=== PATIENT | male | born 1940 | race Caucasian/White ===

== ENCOUNTER → 2021-02-15 | Outpatient (CLI) | payer OTHER ==
[~2021-02-15] MED LIST: B-122500 MCG SL; CIPRSO BOTHEYES; Cardura Xl8 MG PO; Flonase 0.05% N16 GM; RXOXYACE PO; SOMA350 MG PO
[2021-02-16 09:30] LABS: Stool Occult Bld Immuno 1 Negative (NEGATIVE)
== END | disposition home or self-care (01) ==
LOC: LAB SHORT 16:09
PROVIDERS: Family Medicine
DX: Z12.11 Encounter for screening for malignant neoplasm of colon (principal)
CPT/HCPCS: G0328

== ENCOUNTER 2021-09-13 11:59 | Emergency (ER) | payer OTHER ==
[~2021-09-13] VITALS: Ht 175.3 cm; Wt 109.8 kg
[2021-09-13 13:13] LABS: BASOPHILS ABSOLUTE AUTO 0.02 K/mm3 (0.00-0.23); BASOPHILS PERCENT AUTO 1 % (0-2); EOSINOPHILS ABSOLUTE AUTO 0.04 K/mm3 (0.00-0.68); EOSINOPHILS PERCENT AUTO 1 % (0-6); Hematocrit 42.4 % (37.0-53.0); Hemoglobin 14.6 g/dL (13.5-17.5); IMMATURE GRAN ABSOLUTE AUTO 0.02 K/mm3 (0.00-0.10); IMMATURE GRAN PERCENT AUTO 1 % (0-1); LYMPHOCYTES ABSOLUTE AUTO 0.46 K/mm3 (0.84-5.20); LYMPHOCYTES PERCENT AUTO 17 % (21-46); MONOCYTES ABSOLUTE AUTO 0.49 K/mm3 (0.16-1.47); MONOCYTES PERCENT AUTO 18 % (4-13); Mean Corpuscular HGB 34.4 pg (26.0-34.0); Mean Corpuscular HGB Conc 34.4 g/dL (31.5-36.5); Mean Corpuscular Volume 100 fL (80-100); Mean Platelet Volume 10.4 fL (9.1-12.4); NEUTROPHILS ABSOLUTE AUTO 1.74 K/mm3 (1.96-9.15); NEUTROPHILS PERCENT AUTO 63 % (41-73); Platelet Count 62 K/mm3 (150-400); RDW Coefficient Variation 12.2 % (11.7-14.2); RDW Standard Deviation 45.4 fL (35.1-46.3); Red Blood Cell Count 4.25 M/mm3 (4.30-5.90); White Blood Cell Count 2.77 K/mm3 (4.00-11.30)
[2021-09-13 13:31] LABS: Albumin, Blood 3.9 g/dL (3.4-5.0); Albumin/Globulin Ratio 1.1 (0.8-1.8); Bilirubin, Total 1.2 mg/dL (0.1-1.0); Bun/Creatinine Ratio 14.1 (12.0-20.0); Calcium, Blood 8.8 mg/dL (8.5-10.1); Creatinine, Blood 0.85 mg/dL (0.60-1.20); Globulin, Blood 3.7 g/dL (2.2-4.0); Potassium, Blood 4.2 mmol/L (3.5-5.5); Total Protein, Blood 7.6 g/dL (6.4-8.2)
== END 2021-09-13 15:09 | disposition home or self-care (01) ==
LOC: ER 11:59
PROVIDERS: Student in an Organized Health Care Education/Training Program
DX: S46.212A Strain of muscle, fascia and tendon of other parts of biceps, left arm, initial encounter (principal); X50.0XXA Overexertion from strenuous movement or load, initial encounter; D72.819 Decreased white blood cell count, unspecified; D69.6 Thrombocytopenia, unspecified; Z88.2 Allergy status to sulfonamides; Z79.899 Other long term (current) drug therapy; Z87.891 Personal history of nicotine dependence
CPT/HCPCS: 76882; 80053; 85025; 99284-25

== ENCOUNTER 2023-02-05 11:06 | Inpatient (IN) | payer OTHER ==
[~2023-02-05] VITALS: Ht 172.7 cm; Wt 106.0 kg
[2023-02-05 11:41] LABS: Hematocrit 36.1 % (37.0-53.0); Hemoglobin 12.1 g/dL (13.5-17.5); Mean Corpuscular HGB 33.8 pg (26.0-34.0); Mean Corpuscular HGB Conc 33.5 g/dL (31.5-36.5); Mean Corpuscular Volume 101 fL (80-100); Mean Platelet Volume 10.2 fL (9.1-12.4); Platelet Count 57 K/mm3 (150-400); RDW Standard Deviation 44.8 fL (35.1-46.3); Red Blood Cell Count 3.58 M/mm3 (4.30-5.90); White Blood Cell Count 21.25 K/mm3 (4.00-11.30)
[2023-02-05 11:59] LABS: Alanine Aminotransfer (ALT/SGP 92 U/L (12-78); Albumin, Blood 2.2 g/dL (3.4-5.0); Albumin/Globulin Ratio 0.5 (0.8-1.8); Alk Phos 127 U/L (50-136); Anion Gap 11 mmol/L (6-16); Aspartate Aminotrans (AST/SGOT 118 U/L (12-37); Bilirubin, Total 1.3 mg/dL (0.1-1.0); Blood Urea Nitrogen 24 mg/dL (8-24); Bun/Creatinine Ratio 7.9 (12.0-20.0); CO2, Blood 18 mmol/L (21-32); Chloride, Blood 104 mmol/L (98-108); Creatinine, Blood 3.05 mg/dL (0.60-1.20); Ethanol (Alcohol), Blood, Med <3 mg/dL; Globulin, Blood 4.3 g/dL (2.2-4.0); Glomerular Filtration Rate 20 (60-); Glucose, Blood 76 mg/dL (70-99); Magnesium, Blood 1.7 mg/dL (1.6-2.4); Potassium, Blood 4.5 mmol/L (3.5-5.5); Sodium, Blood 133 mmol/L (136-145); Total Protein, Blood 6.5 g/dL (6.4-8.2)
[2023-02-05 12:04] LABS: Base Excess Venous -7.3 mmol/L; Bicarbonate Venous 19.4 mmol/L (24.0-30.0); pH Blood Venous 7.37 (7.34-7.37)
[2023-02-05] MEDS ORDERED: DICL75ER PO (13:03)
[2023-02-05] MEDS ORDERED: TAMS.4ER PO (13:03)
[2023-02-05] MEDS ORDERED: OLMESARTAN MEDO20 MG PO (13:04)
[2023-02-05] MEDS ORDERED: DUTASTERIDE0.5 M3 PO (13:04)
[2023-02-05 13:16] LABS: BAND PERCENT MAN 21 % (0-8); BASOPHILS PERCENT MAN 0 % (0-2); EOSINOPHILS PERCENT MAN 0 % (0-6); METAMYELOCYTE ABSOLUTE MAN 0.85 K/mm3 (0.00-0.00); METAMYELOCYTE PERCENT MAN 4 % (0-0); MONOCYTES ABSOLUTE MAN 1.27 K/mm3 (0.16-1.47); MONOCYTES PERCENT MAN 6 % (4-13); NEUTROPHILS ABSOLUTE MAN 19.12 K/mm3 (1.96-9.15); SEG NEUTROPHILS PERCENT MAN 69 % (41-73); TOTAL CELLS COUNTED 100
[2023-02-05 15:01] LABS: Influenza A, PCR NEGATIVE (NEGATIVE); Influenza B, PCR NEGATIVE (NEGATIVE); Resp Syncytial Virus, PCR NEGATIVE (NEGATIVE); SARS-Cov-2 (COVID-19) PCR, MMC NEGATIVE (NEGATIVE)
[2023-02-05 16:00] VITALS: BP 124/103
[2023-02-05 16:16] LABS: Source, Urine Clean Catch; U Amphetamine Screen Not Detected; U Barbituate Screen Not Detected; U Benzodiazapine Screen Not Detected; U Buprenorphine Screen Not Detected; U Cannabinoids Screen Not Detected; U Cocaine Screen Not Detected; U Methadone Screen Not Detected; U Methamphetamine Screen Not Detected; U Opiates Screen Not Detected; U Oxycodone Screen Not Detected; U Phencyclidine Screen Not Detected
[2023-02-05 16:20] LABS: Appearance, Urine Cloudy (Clear); Blood, Urine 5+ (Neg); Color, Urine Brown (P-Yellow); Glucose Qualitative, Urine Neg (Neg); Ketones, Urine 1+ (Neg); Leukocyte Esterase, Urine 1+ (Neg); Nitrite, Urine Neg (Neg); Protein, Urine 3+ (Neg); Specific Gravity, Urine 1.025 (1.003-1.022); Urobilinogen, Urine 1+ (Normal)
[2023-02-05 16:31] LABS: Bilirubin, Urine 2+ (Neg)
[2023-02-05 16:32] LABS: Red Blood Cells, Urine TNTC /hpf (0-2)
[2023-02-05 16:33] LABS: Bacteria Many /hpf; Squamous Epithelial Cells Not Seen /hpf (Few)
[2023-02-05 19:46] VITALS: BP 107/61
--- NOTE | 2023-02-05 21:23 | NUR ---
ASSUMPTION OF CARE AFTER RECEIVING REPORT FROM DAVID MOORE, THIS RN ASSUMED CARE AT APPROX 1915. PATIENT IS ALERT AND ORIENTED X1. ATTEMPTS TO AMBULATE OUT OF BED FREQUENTLY. PULLS AT IV SITE, LINES, AND CORDS. CLINICAL SITTER AT BEDSIDE. IS COOPERATIVE WITH CARE FOLLOWING FREQUENT REORIENTATION. VSS. TELEMETRY SHOWING SINUS TACH 100's-110's. BP STABLE. ON ROOM AIR, SATS >92%. IS NPO DUE TO ALTERED MENTAL STATUS, IS ABLE TO TOLERATE SMALL SIPS OF WATER WITH PILLS. REPORTS NEEDING TO VOID FREQUENTLY, CONDOM CATH IN PLACE. IS ABLE TO VOID SMALL AMOUNTS AT A TIME, EARL URINE IN COLOR. BLADDER SCAN PERFORMED, <200ML. REPORTS 5/10 UPPER BACK PAIN FOLLOWING FALL AT HOME, MEDICATED PER EMAR WITH PO TYLENOL AND A KPAD IS IN PLACE. CALL LIGHT IN REACH. CLINICAL SITTER AT BEDSIDE.
[2023-02-05 23:01] VITALS: BP 114/64
[2023-02-06] VITALS (8 sets, daily range): BP systolic 102–187; BP diastolic 61–119
--- NOTE | 2023-02-06 03:08 | NUR ---
PATIENT REMAINS ALERT AND ORIENTED X1. EXPERIENCING VISUAL HALLUCINATIONS. REPORTING "THERE'S A BUNCH OF LITTLE KIDS OVER THERE, LOOKS LIKE THEY'RE DANCING." BRIEF, INTERMITTENT PERIODS OF SLEEP. EXPERIENCES INCREASED AGITATION, ANXIETY IN REGARDS TO USING RESTROOM. WILL ATTEMPT TO AMBULATE OUT OF BED WITHOUT ASSIST. IS A 2P ASSIST OUT OF BED TO BEDSIDE COMMODE WITH FWW. AGITATION, ANXIETY DECREASES SIGNIFICANTLY FOLLOWING USE OF RESTROOM. MOSTLY INCONTINENT, ATTENDS IN PLACE. CHANGING ATTENDS AND LINENS FREQUENTLY. MULTIPLE LOOSE BM's. VOIDING. CLINICAL SITTER REMAINS AT BEDSIDE. VS REMAIN STABLE. TELEMETRY CURRENTLY SHOWING SINUS 80's-90's. REMAINS ON ROOM AIR, SATS >92%. PATIENT IS CURRENTLY LYING IN BED, RESPIRATIONS EVEN. NO SIGNS OF DISTRESS NOTED. CALL LIGHT IN REACH. CLINICAL SITTER AT BEDSIDE.
--- NOTE | 2023-02-06 04:01 | NUR ---
PATIENT CONTINUING TO ATTEMPT TO AMBULATE OUT OF BED, DIFFICULT TO REORIENT TO CURRENT SITUATION. UNABLE TO UNDERSTAND DIRECTIONS. BECOMING INCREASINGLY AGITATED. THIS RN ASKED ANIA MOORE TO CONTACT MD. RECEIVED ORDER FOR ONE TIME DOSE OF IM ZYPREXA. ADMINISTERED PER EMAR BY THIS RN. PATIENT IS CURRENTLY IN BED RESTING WITH EYES CLOSED, RESPIRATIONS EVEN. NO SIGNS OF DISTRESS NOTED.
[2023-02-06 04:49] LABS: Hematocrit 33.6 % (37.0-53.0); Hemoglobin 11.3 g/dL (13.5-17.5); Mean Corpuscular HGB Conc 33.6 g/dL (31.5-36.5); Mean Corpuscular Volume 101 fL (80-100); Mean Platelet Volume 10.4 fL (9.1-12.4); Platelet Count 54 K/mm3 (150-400); RDW Coefficient Variation 12.4 % (11.7-14.2); RDW Standard Deviation 46.3 fL (35.1-46.3); Red Blood Cell Count 3.32 M/mm3 (4.30-5.90); White Blood Cell Count 26.06 K/mm3 (4.00-11.30)
[2023-02-06 05:12] LABS: Albumin, Blood 2.2 g/dL (3.4-5.0); Albumin/Globulin Ratio 0.6 (0.8-1.8); Bilirubin, Total 0.8 mg/dL (0.1-1.0); Calcium, Blood 6.9 mg/dL (8.5-10.1); Creatinine, Blood 2.53 mg/dL (0.60-1.20); Potassium, Blood 4.5 mmol/L (3.5-5.5); Total Protein, Blood 6.2 g/dL (6.4-8.2)
--- NOTE | 2023-02-06 05:23 | NUR ---
SHIFT SUMMARY PATIENT IS CURRENTLY SLEEPING FOLLOWING ZYPREXA ADMINISTRATION PER EMAR. SEE PRIOR NOTES REGARDING ONGOING ALTERED MENTAL STATUS. UPON WAKING, PATIENT EXPERIENCES INCREASED ANXIETY/AGITATION IN REGARDS TO NEEDING TO VOID. ABLE TO REDIRECT WITH THERAPUETIC COMMUNICATION TO USE URINAL IN BED. CLINICAL SITTER REMAINS AT BEDSIDE. VS REMAIN STABLE. TELEMETRY SHOWING SINUS 80's. REMAINS ON ROOM AIR, SATS >92%. IVF INFUSING PER EMAR. MOSTLY INCONTINENT OF BOTH BOWEL AND BLADDER. FREQUENT LINEN AND ATTENDS CHANGES THROUGHOUT SHIFT. IS A TWO PERSON ASSIST WITH MOBILITY. WILL REPORT TO ONCOMING RN.
[2023-02-06 05:40] LABS: BAND PERCENT MAN 17 % (0-8); BASOPHILS PERCENT MAN 0 % (0-2); EOSINOPHILS PERCENT MAN 0 % (0-6); LYMPHOCYTES ABSOLUTE MAN 0.26 K/mm3 (0.84-5.20); LYMPHOCYTES PERCENT MAN 1 % (21-46); METAMYELOCYTE ABSOLUTE MAN 0.52 K/mm3 (0.00-0.00); METAMYELOCYTE PERCENT MAN 2 % (0-0); MONOCYTES PERCENT MAN 0 % (4-13); NEUTROPHILS ABSOLUTE MAN 25.27 K/mm3 (1.96-9.15); SEG NEUTROPHILS PERCENT MAN 80 % (41-73); TOTAL CELLS COUNTED 100
--- NOTE | 2023-02-06 18:00 | NUR ---
SHIFT SUMMARY; ASSUMED CARE AT 0700. SITTER WITH PT. SLEEPING BUT AWAKES TO VERBAL STIMULI. REPOSITIONS SELF IN BED. IMPULSIVE AT TIMES, SITS SELF UP AND ATTEMPTS TO JUMP OUT OF BED YELLING AT TIMES. DIFFICULT TO REDIRECT. APPEARS TO BE WHEN HAS TO URINATE. DISCUSSED WITH DR. GALLARDO, ORDERS PLACED TO RESTART BPH MEDS. ABLE TO URINATE SEVERAL TIMES DURING SHIFT. AT TIMES MISSES URNIAL OR COMMODE AND URINATES ON FLOOR. IV FLUIDS INFUSING AT 100ML/HR PER ORDERS, AMBULATES IN EVENING TO BATHROOM WITH 2 PERSON ASSIST AND WALKER, UNSTEADY ON FEET. VSS, WILL CONTINUE TO MONITOR AND TREAT UNTIL CHANGE OF SHIFT.
--- NOTE | 2023-02-06 21:08 | NUR ---
ASSUMPTION OF CARE AFTER RECEIVING REPORT FROM ADVID MOORE, THIS RN ASSUMED CARE AT APPROX 1915. PATIENT SITTING UP ON SIDE OF BED, CLINICAL SITTER AT BEDSIDE. IS ALERT AND ORIENTED X1-2. IS ABLE TO REPORT NAME, DATE OF , AND THAT HE IS IN THE HOSPITAL. STATED THAT "THE HOSPITAL IS IN [place]." MENTATION DOES SEEM TO BE IMPROVING SINCE LAST NIGHT. ABLE TO FOLLOW DIRECTIONS EASIER. ABLE TO REORIENT TO CURRENT SITUATION EASIER. CLINICAL SITTER REMAINS AT BEDSIDE. IS A 1-2 PERSON ASSIST WITH FWW TO STAND TO USE BEDSIDE COMMODE. VOIDING. HOME URINARY RETENTION MEDICATIONS RE-STARTED TODAY. TELEMETRY SHOWING SINUS 80's. BP ELEVATED, SBP 160's. HOME DOSE OF PO HYDRALAZINE ADMINISTERED PER EMAR. DENIES CHEST PAIN OR PRESSURE. IS ON ROOM AIR, SATS >92%. MILDY TACHYPNEIC WHILE SITTING ON SIDE OF BED, RR 20-24. CALL LIGHT IN REACH.
--- NOTE | 2023-02-07 02:56 | NUR ---
AT APPROX 0115, WHILE IN A DIFFERENT PATIENT's ROOM, THIS RN OVERHEARD YELLING IN HALLWAY AND PRODUCTION LINE TECHNICIAN ANIA REQUESTING SECURITY TO OUTSIDE OF ROOM PCU 09. THIS RN STEPPED OUT INTO HALLWAY TO OBSERVE PATIENT AMBULATING IN HALLWAY, WITHOUT CLOTHING, ATTEMPTING TO FIND A RESTROOM. BLOOD NOTED ON PATIENT's R ARM AND ON FLOOR FROM PULLED IV SITE. MULTIPLE STAFF MEMBERS ATTEMPTING TO REORIENT PATIENT TO CURRENT SITUATION, ATTEMPTING TO HAVE HIM SIT IN A WHEELCHAIR TO SAFELY TRANSFER HIM BACK TO HIS ROOM. UNABLE TO REORIENT PATIENT. PATIENT BECOMING INCREASINGLY AGITATED, YELLING OUT. YELLING "I NEED MY GUN." PATIENT BEGINNING TO BECOME COMBATIVE, HITTING AND KICKING AT STAFF MEMBERS. THIS RN AND MULTIPLE STAFF MEMBERS, PLACED PATIENT IN WHEELCHAIR. CONTINUING TO ATTEMPT TO KICK AND HIT STAFF. BILATERAL WRIST RESTRAINTS, LOCKING TUFF CUFFS, PLACED TO SAFELY TRANSFER BACK TO BED. SECURITY NOW AT BEDSIDE. 4 POINT WRIST RESTRAINTS PLACED AT APPROX 0200, ONCE PATIENT TRANSFERRED TO BED. PATIENT CONTINUING TO YELL OUT, THREATEN STAFF MEMBERS. THIS RN CONTACTED MD. ORDER NOW IN PLACE FOR RESTRAINTS. RECEIVED ORDER FOR IM ZYPREXA AND ONE TIME DOSE OF PO SEROQUEL. PO SEROQUEL ADMINISTERED PER EMAR. WILL CONTINUE TO RE-ASSESS RESTRAINTS PER PROTOCOL.
--- NOTE | 2023-02-07 03:25 | NUR ---
0100- PT TRIALED OFF SITTER AFTER DISCUSSION WITH PRIMARY RN AND SITTER IN ROOM. PT HAD BEEN REDIRECTABLE AND APPROPRIATE WHEN AWAKE AND SLEEPING COMFORTABLY THIS SHIFT. 0115 - PT NOTED BY THIS RN TO BE EXITING BED, PULLING OFF GOWN AND IV. UPON INTERCEPTING PT HE CONTINUED TO EXIT THE ROOM, NOT REDIRECTABLE. STATES HE WAS TRYING TO FIND A BATHROOM. UNSTEADY ON HIS FEET AND BLEEDING FROM IV SITE. CONTINUED TO GET INCREASINGLY AGITATED WITH REDIRECTION AND ATTEMPTING TO GUIDE VERBALLY BACK TO ROOM. OTHER STAFF MEMBERS CALLED OVER FOR ASSISTANCE, AND WHEELCHAIR OBTAINED. PT BEGIN PUSHING AND HITTING STAFF, TRYING TO KICK, ASKING FOR US TO "GET HIS GUN". SECURITY CALLED AND PT GUIDED INTO WHEELCHAIR AND PLACED IN BILATERAL LOCKED WRIST RESTRAINTS. SECURITY AND STAFF ASSISTED PT TO BED AND 4 PT LOCKED RESTRAINTS INTIATED. PRIMARY RN LEBRON IN ROOM AT THIS TIME AND UPDATED.
[2023-02-07 04:12] VITALS: BP 171/87
--- NOTE | 2023-02-07 05:33 | NUR ---
SHIFT SUMMARY SEE PREVIOUS NOTES. LOCKING 4 POINT RESTRAINTS REMOVED AROUND 0430 PATIENT's AGITATION DECREASED WITH PO SERAQUEL. NO LONGER YELLING THREATENING STATEMENTS. NO LONGER KICKING AT STAFF. PATIENT REMAINS ALERT X1. UNABLE TO REORIENT TO SITUATION. CLINICAL SITTER RE-INITIATED FOLLOWING RESTRAINT REMOVAL. ATTEMPTED TO DISTRACT PATIENT WITH THERAPUETIC COMMUNICATION, TV. PATIENT BECAME INCREASINGLY AGITATED. EXPERIENCING VISUAL HALLUCINATIONS. STATING "I NEED TO GET OUT OF HERE. I HAVE IMPORTANT MEETINGS TO GO TO." UNABLE TO REORIENT PATIENT. IM ZYPREXA ADMINISTERED PER EMAR WITH NO DECREASE IN AGITATION NOTED. BEGAN PULLING AT LINES, DEVICES. CONTINUING TO TRY TO GET OUT OF BED. NICK VEST RESTRAINT APPLIED. NOTIFIED, RECEIVED ORDER. TELEMETRY SHOWING SINUS TACH 100'S-110'S. REMAINS ON ROOM AIR, SATS >92%. VOIDING. MOSTLY INCONTINENT, CONTINUES TO EXPERIENCE URGENCY. CALL LIGHT IN REACH. BED ALARM ON. WILL REPORT TO ONCOMING RN.
[2023-02-07 07:30] VITALS: BP 144/84
[2023-02-07 07:56] LABS: Hematocrit 36.9 % (37.0-53.0); Hemoglobin 12.3 g/dL (13.5-17.5); Mean Corpuscular HGB 33.4 pg (26.0-34.0); Mean Corpuscular HGB Conc 33.3 g/dL (31.5-36.5); Mean Corpuscular Volume 100 fL (80-100); Mean Platelet Volume 10.5 fL (9.1-12.4); Platelet Count 66 K/mm3 (150-400); RDW Coefficient Variation 12.5 % (11.7-14.2); RDW Standard Deviation 46.5 fL (35.1-46.3); Red Blood Cell Count 3.68 M/mm3 (4.30-5.90); White Blood Cell Count 16.86 K/mm3 (4.00-11.30)
[2023-02-07 08:19] LABS: Bun/Creatinine Ratio 22.1 (12.0-20.0); Calcium, Blood 7.6 mg/dL (8.5-10.1); Creatinine, Blood 1.45 mg/dL (0.60-1.20); Potassium, Blood 3.7 mmol/L (3.5-5.5)
[2023-02-07 08:24] LABS: BAND PERCENT MAN 4 % (0-8); BASOPHILS PERCENT MAN 0 % (0-2); EOSINOPHILS PERCENT MAN 0 % (0-6); LYMPHOCYTES ABSOLUTE MAN 0.16 K/mm3 (0.84-5.20); LYMPHOCYTES PERCENT MAN 1 % (21-46); MONOCYTES ABSOLUTE MAN 0.67 K/mm3 (0.16-1.47); MONOCYTES PERCENT MAN 4 % (4-13); NEUTROPHILS ABSOLUTE MAN 16.01 K/mm3 (1.96-9.15); SEG NEUTROPHILS PERCENT MAN 91 % (41-73); TOTAL CELLS COUNTED 100
--- NOTE | 2023-02-07 08:37 | NUR ---
INITIAL ASSESSMENT: Patient is lying in bed clam at this time, it appears he has peed on the floor. He has a musa vest in place. He is oriented to self only, he is able to tell me who the president is, he tells me todays date is his birthday. He denies pain at this time. HR irreg, he looks to be in SR with some PVCs, patients heart rate occasionally increases up into the 150s activity. LS DIM in the bases, patient is tachypnec with exertion. BT+, he was having diarrhea yesterday but not having any this morning. VSS. He is not redirectable at times, but I am able to gethim to sit down perdiodically. Patient has breakfast at bedside. Will continue to monitor.
[2023-02-07 10:15] VITALS: BP 113/56
[2023-02-07 11:21] VITALS: BP 111/67
[2023-02-07 16:15] VITALS: BP 102/63
--- NOTE | 2023-02-07 17:21 | NUR ---
SUMMARY: Patient has been confused and oriented to self only T/O the shift. He has been intermittently agigtated. He was able to nap for a little bit today after not sleeping last night. LS DIM in the bases, he has been sputtering at times with water, he has a good cough. Biox has been high 90s on RA. This morning he was SR around 8am the patient converted to A-Fib, his rate has been 60s-70s. He is asymptomatic. Dr. Mckeon started him on Metoprolol this shift, he had a period of slow A-Fib with his rate dropping down into the high 30s, MD notified-dose decreased. Blood pressure has been soft since he converted to A-Fib, Hydralazine scheduled has been discontinued. BT+, he has not had a BM this shift. He hasn't been eating much this shift. IVF DC'd patient has had good PO intake. He has been able to ambulate to the bathroom to void. He has a steady gait with a FWW. No other acute changes this shift, will report to oncoming RN.
[2023-02-07 19:43] VITALS: BP 147/88
--- NOTE | 2023-02-07 21:17 | NUR ---
ASSUMPTION OF CARE AFTER RECEIVING REPORT FROM MARLYN MOORE, THIS RN ASSUMED CARE AT APPROX 1915. PATIENT ALERT, SITTING IN CHAIR. IS ALERT AND ORIENTED X1. IS EXPERIENCING VISUAL HALLUCINATIONS, REPORTING SEEING PEOPLE THAT ARE NOT IN ROOM AND SEEING A FAUCET OVERFLOWING WATER ONTO FLOOR. REQUIRES CONTINUOUS REORIENTATION TO CURRENT SITUATION, UNIT. FREQUENTLY UP IN ROOM, GAIT UNSTEADY. REQUIRES STAND BY ASSIST. CLINICAL SITTER AT BEDSIDE. VSS. TELEMETRY SHOWING SINUS 80's-90's. PER VIOLETTA CARNES PATIENT CONVERTED FROM AFIB TO SINUS AT APPROX 1620. BP STABLE. ON ROOM AIR, SATS >92%. TACHYPNEIC WITH MOBILITY. CONTINUES TO EXPERIENCE URINARY URGENCY, INCONTINENT AT TIMES. UP FREQUENTLY TO VOID.
--- NOTE | 2023-02-08 01:30 | NUR ---
PATIENT REMAINS MEDICAL WITH TELEMETRY STATUS. REPORT GIVEN TO ACCEPTING RN ON MEDICAL FLOOR. WILL TRANSFER PATIENT ONCE ROOM IS CLEAN, AVAILABLE. PERSONAL BELONGINGS WITH PATIENT. CLINICAL SITTER TRANSFERING WITH PATIENT TO REMAIN AT BEDSIDE.
[2023-02-08 03:37] VITALS: BP 159/87
--- NOTE | 2023-02-08 04:56 | NUR ---
PATIENT HAS RED SPOTTED RASH THAT SPREADS FROM HIS MID BACK TO LOWER BACK. HOSPITALIST CALLED AND NOTIFIED-INSTRUCTED THIS RN TO MONITOR RASH AND NOTIFY IF RASH WORSENS.
[2023-02-08 06:02] LABS: BASOPHILS ABSOLUTE AUTO 0.01 K/mm3 (0.00-0.23); BASOPHILS PERCENT AUTO 0 % (0-2); EOSINOPHILS ABSOLUTE AUTO 0.08 K/mm3 (0.00-0.68); EOSINOPHILS PERCENT AUTO 1 % (0-6); Hematocrit 33.8 % (37.0-53.0); Hemoglobin 11.3 g/dL (13.5-17.5); IMMATURE GRAN ABSOLUTE AUTO 0.04 K/mm3 (0.00-0.10); IMMATURE GRAN PERCENT AUTO 1 % (0-1); LYMPHOCYTES ABSOLUTE AUTO 0.52 K/mm3 (0.84-5.20); LYMPHOCYTES PERCENT AUTO 6 % (21-46); MONOCYTES ABSOLUTE AUTO 0.66 K/mm3 (0.16-1.47); MONOCYTES PERCENT AUTO 8 % (4-13); Mean Corpuscular HGB 33.3 pg (26.0-34.0); Mean Corpuscular HGB Conc 33.4 g/dL (31.5-36.5); Mean Corpuscular Volume 100 fL (80-100); Mean Platelet Volume 10.4 fL (9.1-12.4); NEUTROPHILS PERCENT AUTO 84 % (41-73); Platelet Count 61 K/mm3 (150-400); RDW Coefficient Variation 12.5 % (11.7-14.2); RDW Standard Deviation 46.4 fL (35.1-46.3); Red Blood Cell Count 3.39 M/mm3 (4.30-5.90); White Blood Cell Count 8.21 K/mm3 (4.00-11.30)
[2023-02-08 06:18] LABS: Albumin, Blood 2.1 g/dL (3.4-5.0); Albumin/Globulin Ratio 0.5 (0.8-1.8); Bilirubin, Total 0.7 mg/dL (0.1-1.0); Bun/Creatinine Ratio 22.1 (12.0-20.0); Calcium, Blood 7.7 mg/dL (8.5-10.1); Creatinine, Blood 1.22 mg/dL (0.60-1.20); Globulin, Blood 4.1 g/dL (2.2-4.0); Potassium, Blood 3.9 mmol/L (3.5-5.5); Total Protein, Blood 6.2 g/dL (6.4-8.2)
[2023-02-08 07:31] VITALS: BP 151/72
[2023-02-08 16:26] VITALS: BP 159/77
--- NOTE | 2023-02-08 17:06 | NUR ---
SHIFT SUMMARY PT STARTED SHIFT CONFUSED, MUMBLING & HALLUCINATING. REMAINED ASLEEP, IN BED WITH EYES CLOSED, RESP EVEN & UNLABORED. HAD DIFFICULTY REMAINING AWAKE TO EAT. SKIPPED BFAST & LUNCH. AWAITING DINNER. IS UNSTEADY ON FEET & NOT REDIRECTABLE OR RE-ORIENTABLE. IS UP FREQUENTLY WITH ASSISTANCE BY CLINICAL SITTER (THIS RN) TO URINATE. IS UNABLE TO DIRECT STREAM INTO THE TOILET BOWL. HE WILL RETURN TO BED WITH MUCH DIRECTION & ENCOURAGEMENT. RECEIVED ORDERS FROM TO DC THE TELE. PT'S IV IS INTACT & PATENT. IV ABX GIVEN ORDERED. THE SHIFT PROGRESSED PT BECAME SLIGHTLY MORE ORIENTED AND AWAKE. REMAINS UNSTEADY ON FEET AND DOES NOT USE CALL LIGHT TO ASK FOR HELP. THIS RN IS CLINICAL SITTER.
[2023-02-08 19:56] VITALS: BP 134/80
--- NOTE | 2023-02-09 04:07 | NUR ---
SHIFT SUMMARY JOESPH WAS ALERT AND ORIENTED TO SELF AND PERSON AT THE START OF SHIFT. PT IS CONFUSED, BUT MENTATION SEEMS BETTER NOW THAN WHAT WAS REPORTED FOR PREVIOUS SHIFTS. PT IS STILL 1:1 AT THIS TIME AND NEEDS FREQUENT REDIRECTION. PT STARTED TO BECOME AGITATED AROUND 0100, ATTEMPTS TO REDUCE AGITATION WITH THERAPEUTIC COMMUNICATION WERE SUCCESSFUL FOR A SHORT DURATION, 2MG HALDOL WAS EVENTUALLY ADMINISTERED AFTER IT BECAME APARANT THAT THE PT WAS GOING TO CONTINUE TO ESCALATE AND THAT THERAPUTIC COMMUNICATION WOULD NOT BE SUFFICIENT. NO ACUTE EVENTS OR NOTABLE CHANGES IN CONDITION TONIGHT. PT RESTING IN BED AT A LOW POSITION WITH 1:1 SUPERVISION AT THIS TIME, WILL CONTINUE TO MONITOR.
[2023-02-09 04:47] LABS: BASOPHILS ABSOLUTE AUTO 0.01 K/mm3 (0.00-0.23); BASOPHILS PERCENT AUTO 0 % (0-2); EOSINOPHILS ABSOLUTE AUTO 0.09 K/mm3 (0.00-0.68); EOSINOPHILS PERCENT AUTO 2 % (0-6); Hematocrit 33.3 % (37.0-53.0); Hemoglobin 10.9 g/dL (13.5-17.5); IMMATURE GRAN ABSOLUTE AUTO 0.04 K/mm3 (0.00-0.10); IMMATURE GRAN PERCENT AUTO 1 % (0-1); LYMPHOCYTES PERCENT AUTO 11 % (21-46); MONOCYTES ABSOLUTE AUTO 0.67 K/mm3 (0.16-1.47); MONOCYTES PERCENT AUTO 15 % (4-13); Mean Corpuscular HGB Conc 32.7 g/dL (31.5-36.5); Mean Corpuscular Volume 101 fL (80-100); Mean Platelet Volume 10.2 fL (9.1-12.4); NEUTROPHILS ABSOLUTE AUTO 3.26 K/mm3 (1.96-9.15); NEUTROPHILS PERCENT AUTO 71 % (41-73); Platelet Count 59 K/mm3 (150-400); RDW Coefficient Variation 12.3 % (11.7-14.2); White Blood Cell Count 4.57 K/mm3 (4.00-11.30)
[2023-02-09 06:10] VITALS: BP 150/82
[2023-02-09 06:13] LABS: Bun/Creatinine Ratio 19.5 (12.0-20.0); Creatinine, Blood 1.13 mg/dL (0.60-1.20); Potassium, Blood 3.8 mmol/L (3.5-5.5)
[2023-02-09 07:19] VITALS: BP 164/75
[2023-02-09 14:57] VITALS: BP 174/79
[2023-02-09 20:57] VITALS: BP 174/94
[2023-02-10 02:03] VITALS: BP 166/79
--- NOTE | 2023-02-10 06:02 | NUR ---
SHIFT SUMMERY, PT RESTING IN BED AT THIS TIME. PT VERY IMPULSIVE WILL NOT CALL. PT UP MULTIPLE TIMES TO VOID. PT A LITTLE CONFUSED. PT SEEMED TO SLEEP MOST OF THE NIGHT. CALL LIGHT IN REACH BED ALARM ON.
[2023-02-10 06:09] LABS: Hematocrit 33.7 % (37.0-53.0); Hemoglobin 11.4 g/dL (13.5-17.5); Mean Corpuscular HGB 33.7 pg (26.0-34.0); Mean Corpuscular HGB Conc 33.8 g/dL (31.5-36.5); Mean Corpuscular Volume 100 fL (80-100); Mean Platelet Volume 10.1 fL (9.1-12.4); Platelet Count 69 K/mm3 (150-400); RDW Coefficient Variation 12.3 % (11.7-14.2); RDW Standard Deviation 44.9 fL (35.1-46.3); Red Blood Cell Count 3.38 M/mm3 (4.30-5.90); White Blood Cell Count 2.91 K/mm3 (4.00-11.30)
[2023-02-10 06:39] LABS: BASOPHILS PERCENT MAN 0 % (0-2); EOSINOPHILS ABSOLUTE MAN 0.11 K/mm3 (0.00-0.68); EOSINOPHILS PERCENT MAN 4 % (0-6); LYMPHOCYTES ABSOLUTE MAN 0.37 K/mm3 (0.84-5.20); LYMPHOCYTES PERCENT MAN 13 % (21-46); MONOCYTES ABSOLUTE MAN 0.49 K/mm3 (0.16-1.47); MONOCYTES PERCENT MAN 17 % (4-13); NEUTROPHILS ABSOLUTE MAN 1.92 K/mm3 (1.96-9.15); SEG NEUTROPHILS PERCENT MAN 66 % (41-73); TOTAL CELLS COUNTED 100
[2023-02-10 06:43] LABS: Bun/Creatinine Ratio 22.7 (12.0-20.0); Calcium, Blood 7.8 mg/dL (8.5-10.1); Creatinine, Blood 0.93 mg/dL (0.60-1.20); Potassium, Blood 3.6 mmol/L (3.5-5.5)
[2023-02-10 07:33] VITALS: BP 140/83
[2023-02-10 14:51] VITALS: BP 166/82
--- NOTE | 2023-02-10 18:00 | NUR ---
SHIFT SUMMARY PT A&O X 2, VSS. IS PLEASANT & COOPERATIVE WITH ALL CARE. APPETITE GOOD. IS IMPULSIVE & WILL NOT USE CALL LIGHT. BED & CHAIR ALARMS CAUSE INCREASED AGITATION. IS CONFUSED & FORGETFUL. REQUIRING 1:1 SITTER. IS INCREASINGLY EASIER TO REDIRECT. HAS SAT UP IN CHAIR MOST OF SHIFT. IS 1 ASSIST TO RESTROOM FOR URINARY FREQ W/FWW FOR RESTROOM USE. DENIES PAIN OR DISCOMFORT. HAS VISITED AT BEDSIDE MOST OF SHIFT. PLAN IS LIKELY HOME WITH HH UPON DC ONCE CLINICALLY READY.
[2023-02-10 19:29] VITALS: BP 141/72
--- NOTE | 2023-02-10 21:01 | NUR ---
PT GETTING UP OUT OF CHAIR AND BED WANDERING OUT INTO THE HALLWAY SAYING HE NEEDS TO GO TO THE BATHROOM. PT TRIED TO URINATE IN GARBAGE CAN DOWN THE HALLWAY, BUT WAS FINALLY REDIRECTED BACK TO HIS ROOM. PT REFUSING TO STAY IN BED, BUT IS SITTING UP IN THE CHAIR AT THIS TIME. PT HAS BEEN GIVEN HALDOL AND ZYPREXA WITH MINIMAL EFFECT AT THIS TIME. WILL CONTINUE TO MONITOR.
--- NOTE | 2023-02-10 22:56 | NUR ---
PT CONTINUING TO WANDER OUT OF HIS ROOM AND TRY TO GO INTO OTHER ROOMS. PT BECOMES ANGRY WHEN TRYING TO STOP HIM. PT GIVEN IM INJECTION OF ZYPREXA PER MAY AT THIS TIME.
--- NOTE | 2023-02-10 23:29 | NUR ---
PT CONTINUING TO GET OUT OF BED AND BE BELIGERANT WITH STAFF WHEN TRYING TO REDIRECT HIM. ORDER FROM PHYSICIAN TO PLACE PT IN NICK VEST. VEST PLACED AT 2328. WILL CONTINUE TO MONITOR.
--- NOTE | 2023-02-11 02:45 | NUR ---
PT CONTINUES TO CALL OUT AND PULL AT HIS IV. PT MEDICATED PER EMAR.
--- NOTE | 2023-02-11 03:52 | NUR ---
SHIFT SUMMARY PLEASE SEE PREVIOUS NOTES ABOUT BEHAVIOR. PT CONTINUES TO BE IN NICK VEST. PT HAS BEEN MEDICATED MANY TIMES THIS SHIFT FOR BEHAVIORS, PLEASE SEE EMAR. PT HAS ONLY SLEPT ABOUT 20-30 MIN TONIGHT.
[2023-02-11 04:14] VITALS: BP 165/85
[2023-02-11 07:38] VITALS: BP 163/90
[2023-02-11 09:50] LABS: BASOPHILS ABSOLUTE AUTO 0.03 K/mm3 (0.00-0.23); BASOPHILS PERCENT AUTO 1 % (0-2); EOSINOPHILS ABSOLUTE AUTO 0.06 K/mm3 (0.00-0.68); EOSINOPHILS PERCENT AUTO 2 % (0-6); Hematocrit 34.9 % (37.0-53.0); IMMATURE GRAN ABSOLUTE AUTO 0.04 K/mm3 (0.00-0.10); IMMATURE GRAN PERCENT AUTO 1 % (0-1); LYMPHOCYTES ABSOLUTE AUTO 0.45 K/mm3 (0.84-5.20); LYMPHOCYTES PERCENT AUTO 15 % (21-46); MONOCYTES ABSOLUTE AUTO 0.64 K/mm3 (0.16-1.47); MONOCYTES PERCENT AUTO 22 % (4-13); Mean Corpuscular HGB 33.7 pg (26.0-34.0); Mean Corpuscular HGB Conc 34.4 g/dL (31.5-36.5); Mean Corpuscular Volume 98 fL (80-100); Mean Platelet Volume 9.4 fL (9.1-12.4); NEUTROPHILS ABSOLUTE AUTO 1.75 K/mm3 (1.96-9.15); NEUTROPHILS PERCENT AUTO 59 % (41-73); Platelet Count 82 K/mm3 (150-400); RDW Coefficient Variation 11.9 % (11.7-14.2); RDW Standard Deviation 43.3 fL (35.1-46.3); Red Blood Cell Count 3.56 M/mm3 (4.30-5.90); White Blood Cell Count 2.97 K/mm3 (4.00-11.30)
[2023-02-11 10:05] LABS: Bun/Creatinine Ratio 19.7 (12.0-20.0); Creatinine, Blood 0.81 mg/dL (0.60-1.20); Potassium, Blood 3.7 mmol/L (3.5-5.5)
[2023-02-11 16:26] VITALS: BP 165/94
--- NOTE | 2023-02-11 17:56 | NUR ---
SHIFT SUMMARY PATIENT IS ALERT AND ORIENTED TO SELF ONLY. PATIENT APPEARS MORE CONFUSED THAN PREVIOUS SHIFT. PATIENT HAS HAD NO ACUTE EVENTS THIS SHIFT. VITAL SIGNS REVIEWED. PATIENT WAS GIVEN MEDICATION TWICE FOR ANXIETY AND AGITATION. PATIENT HAS BEEN RESTING COMFORTABLY AFTER SECOND PRN MEDICATION. BED IN LOCKED AND LOWEST POSITION. CALL LIGHT IN PLACE. WILL MONITOR UNTIL SHIFT CHANGE.
[2023-02-11 19:56] VITALS: BP 170/86
[2023-02-12 03:06] VITALS: BP 179/89
--- NOTE | 2023-02-12 04:32 | NUR ---
SHIFT SUMMARY PT CONTINUES TO BE IN RESTRAINTS (NICK VEST). PT TOLERATING IT MUCH BETTER THAN LAST NIGHT. RENEWAL IS TODAY AT 1430. PT HAS BEEN MORE INCONTINENT THAN CONTINENT TONIGHT. HE HAS CALL LIGHT WITHIN HIS REACH. PT NO LONGER HAS A SITTER SINCE LAST EVENING.
[2023-02-12 05:56] LABS: BASOPHILS PERCENT AUTO 1 % (0-2); EOSINOPHILS ABSOLUTE AUTO 0.03 K/mm3 (0.00-0.68); EOSINOPHILS PERCENT AUTO 1 % (0-6); Hematocrit 35.4 % (37.0-53.0); Hemoglobin 12.3 g/dL (13.5-17.5); IMMATURE GRAN ABSOLUTE AUTO 0.04 K/mm3 (0.00-0.10); IMMATURE GRAN PERCENT AUTO 1 % (0-1); Mean Corpuscular HGB 33.6 pg (26.0-34.0); Mean Corpuscular HGB Conc 34.7 g/dL (31.5-36.5); Mean Corpuscular Volume 97 fL (80-100); Mean Platelet Volume 9.5 fL (9.1-12.4); RDW Coefficient Variation 11.9 % (11.7-14.2); RDW Standard Deviation 42.1 fL (35.1-46.3); Red Blood Cell Count 3.66 M/mm3 (4.30-5.90); White Blood Cell Count 4.03 K/mm3 (4.00-11.30)
[2023-02-12 05:58] LABS: BASOPHILS ABSOLUTE AUTO 0.03 K/mm3 (0.00-0.23); LYMPHOCYTES ABSOLUTE AUTO 0.48 K/mm3 (0.84-5.20); LYMPHOCYTES PERCENT AUTO 13 % (21-46); MONOCYTES ABSOLUTE AUTO 0.71 K/mm3 (0.16-1.47); MONOCYTES PERCENT AUTO 19 % (4-13); NEUTROPHILS ABSOLUTE AUTO 2.55 K/mm3 (1.96-9.15); NEUTROPHILS PERCENT AUTO 66 % (41-73)
[2023-02-12 06:00] LABS: Platelet Count 90 K/mm3 (150-400)
[2023-02-12 06:16] LABS: Bun/Creatinine Ratio 15.7 (12.0-20.0); Creatinine, Blood 0.77 mg/dL (0.60-1.20); Potassium, Blood 3.3 mmol/L (3.5-5.5)
[2023-02-12 07:18] VITALS: BP 193/93
[2023-02-12] MEDS ORDERED: ACET325 PO (11:07)
[2023-02-12] MEDS ORDERED: OLAN10 PO (11:07)
[2023-02-12] MEDS ORDERED: METO25 PO (11:07)
[2023-02-12] MEDS ORDERED: HALO2 PO (11:08)
--- NOTE | 2023-02-12 15:26 | NUR ---
PT DISCHARGE HOME ON HOME HEALTH WITH TO CARE FOR HIM. PT WAS AOX2 AND COOPERATIVE TODAY. PT MUCH MORE ALERT TODAY AND SEEMED IN GOOD SPIRITS. PT WAS SITTING UP IN CHAIR WELL AND VISITING WITH HIS ALL MORNING. PAPERWORK WAS REVIEWED AND EDUCATIONAL MATERIAL SENT WITH PT. NO DISTRESS NOTED, PT ESCORTED OUT TO N ENTRANCE VIA WHEEL CHAIR.
== END 2023-02-12 14:57 | disposition home health service (06) | DRG 871 ==
LOC: ER 11:06 → PCU 15:27 → MEDS 15:27 → PCU 16:44 → MEDS 02-08 02:12 → ENPENDDIS 02-10 11:26 → MEDS 02-12 14:57
PROVIDERS: Emergency Medicine; Family Medicine; ADMIT Internal Medicine
DX: A41.9 Sepsis, unspecified organism (principal); G92.8 Other toxic encephalopathy; E87.20 Acidosis, unspecified; N17.9 Acute kidney failure, unspecified; D61.818 Other pancytopenia; F03.918 Unspecified dementia, unspecified severity, with other behavioral disturbance; F05 Delirium due to known physiological condition; N39.0 Urinary tract infection, site not specified; R65.20 Severe sepsis without septic shock; N18.2 Chronic kidney disease, stage 2 (mild); I48.91 Unspecified atrial fibrillation; D46.9 Myelodysplastic syndrome, unspecified; I12.9 Hypertensive chronic kidney disease with stage 1 through stage 4 chronic kidney disease, or unspecified chronic kidney disease; E86.0 Dehydration; M54.9 Dorsalgia, unspecified; G89.29 Other chronic pain; N40.0 Benign prostatic hyperplasia without lower urinary tract symptoms; D69.6 Thrombocytopenia, unspecified; Z88.2 Allergy status to sulfonamides; Z79.899 Other long term (current) drug therapy; Z98.890 Other specified postprocedural states; Z11.52 Encounter for screening for COVID-19
CPT/HCPCS: 0241U; 36415; 51701; 51798; 70450; 71045; 72125; 80048; 80053; 81001; 82803; 83605; 83735; 84484; 85025; 87040; 87086; 93005; 93010; 94760; 96361-59; 96365-59; 96372-59; 97110; 97116; 97162; 97166; 97530; 97535; 99285-25; A9270; J0360; J0696; J1630; J1644; J2060; J7030